=== PATIENT | female | born 1970 | race Caucasian/White ===

== ENCOUNTER 2017-11-27 20:01 | Emergency (ER) | payer MEDICAID ==
[~2017-11-27] VITALS: Ht 157.5 cm; Wt 53.6 kg
[~2017-11-27 20:01] MED LIST: CLEOCIN HCL300 MG PO; CORTISPORIN OTI10 ML OT; FLEXERIL 1010 MG/TAB PO; LOPRESSOR 225 MG/TAB PO; LORTAB 5/500 501 TAB PO; NO HOME MEDICATIONS; NORCO 325 MG-51 TAB PO; NORCO 325 MG-7.1 TAB PO; PERCOCET 325 MG1 TA2 PO; PREDNISONE10 MG PO; TOPROL XL 25MG25 MG PO; TOPROL XL 50MG50 MG PO; ULTRAM 50MG TAB50 MG PO
[2017-11-27 20:03] VITALS: BP 191/92; TEMP 98.7
[2017-11-27 20:30] LABS: COLLECTION METHOD CLEAN CATCH
[2017-11-27 20:39] LABS: PH 6 (5-8); SQUAMOUS EPITHELIAL 0-2 /hpf; URINE APPEARANCE Clear; URINE BACTERIA Occasional /hpf; URINE BILIRUBIN Negative (NEGATIVE); URINE BLOOD Negative (NEGATIVE); URINE COLOR Straw; URINE GLUCOSE Negative (NEGATIVE); URINE KETONE Negative (NEGATIVE); URINE LEUKOCYTE ESTERASE Negative (NEGATIVE); URINE NITRATE Negative (NEGATIVE); URINE PROTEIN(semi-quant) Negative (NEGATIVE); URINE RBC 0-2 /hpf; URINE UROBILINOGEN Negative (NEGATIVE)
[2017-11-27] MEDS ORDERED: FLEXERIL 1010 MG/TAB PO (21:07)
[2017-11-27] MEDS ORDERED: PERCOCET 325 MG1 TA2 PO (21:07)
[2017-11-27 21:48] VITALS: PULSE 79
== END 2017-11-27 21:30 | disposition home or self-care (01) ==
LOC: COL.ER 20:01
PROVIDERS: Emergency Medicine
DX: M54.31 Sciatica, right side (principal); I10 Essential (primary) hypertension; F41.9 Anxiety disorder, unspecified; F17.210 Nicotine dependence, cigarettes, uncomplicated; Z90.710 Acquired absence of both cervix and uterus
CPT/HCPCS: J2270

== ENCOUNTER 2020-07-22 14:07 | Emergency (ER) | payer MEDICAID ==
[~2020-07-22] VITALS: Ht 157.5 cm; Wt 59.1 kg
[2020-07-22 14:13] VITALS: BP 187/108; PULSE 110; TEMP 98
[2020-07-22] MEDS ORDERED: PERCOCET 325 MG1 TA2 PO (15:26)
== END 2020-07-22 16:03 | disposition home or self-care (01) ==
LOC: COL.ER 14:07
DX: S42.031A Displaced fracture of lateral end of right clavicle, initial encounter for closed fracture (principal); Z23 Encounter for immunization; W01.198A Fall on same level from slipping, tripping and stumbling with subsequent striking against other object, initial encounter; Y92.009 Unspecified place in unspecified non-institutional (private) residence as the place of occurrence of the external cause